=== PATIENT | female | born 1985 | race Caucasian/White ===

== ENCOUNTER 2017-11-01 20:19 | Outpatient (CLI) | END 2017-11-01 22:30 | disposition home or self-care (01) ==

== ENCOUNTER 2017-11-01 22:29 | Emergency (ER) | END 2017-11-02 03:19 | disposition home or self-care (01) ==

== ENCOUNTER 2017-11-30 05:57 | Inpatient (IN) | END 2017-12-03 17:43 | disposition home or self-care (01) | DRG 765 ==

== ENCOUNTER 2018-07-17 20:13 | Emergency (ER) | END 2018-07-18 09:07 ==

== ENCOUNTER 2018-09-28 16:56 | Emergency (ER) | END 2018-09-28 18:26 | disposition home or self-care (01) ==